=== PATIENT | female | born 1975 | race Caucasian/White ===

== ENCOUNTER → 2017-01-25 | Outpatient (CLI) | payer BC | LOC: MW.CHFP 15:55 | PROVIDERS: ATTEND Physician Assistant | DX: R68.89 Other general symptoms and signs (principal) | CPT/HCPCS: 87804 ==

== ENCOUNTER 2019-03-26 06:51 | Day surgery (SDC) | payer BC ==
[2019-03-25 10:28] LABS: CHLORIDE,CL 103 mmol/L (98-107); SODIUM,NA 138 mmol/L (136-145)
[~2019-03-26 06:51] MED LIST: Lactated Ringers 1,000 ML IV SCH; Sodium Chloride 0.9% 10 ML SDV IV PRN; Sodium Chloride 0.9% 10 ML Syringe FLUSH PRN; Sodium Chloride 0.9% 2.5 ML Syringe FLUSH PRN; ceFAZolin 2 GM in Premix Bag 1 BAG IV ONE
[2019-03-26] MEDS ORDERED: fentaNYL 250 MCG/5 ML SDV ONE (07:11)
[2019-03-26] MEDS ORDERED: Rocuronium 100 MG/10 ML Syringe ONE (07:11)
[2019-03-26] MEDS ORDERED: Lidocaine 2% 5 ML SDV ONE (07:11)
[2019-03-26] MEDS ORDERED: Neostigmine Methylsulfate 1 MG/ML 5 ML Syringe ONE (07:11)
[2019-03-26] MEDS ORDERED: Glycopyrrolate 0.2 MG/ML SDV ONE (07:11)
[2019-03-26] MEDS ORDERED: Propofol 200 MG/20 ML SDV ONE (07:11)
[2019-03-26] MEDS ORDERED: Ondansetron 4 MG/2 ML SDV ONE (07:11)
[2019-03-26] MEDS ORDERED: Midazolam 1 MG/ML 2 ML SDV ONE (07:11)
[2019-03-26] MEDS ORDERED: Fluorescein 5 ML Vial ONE ×2 (07:16→08:18)
[2019-03-26] MEDS ORDERED: Scopolamine 1.5 MG Transdermal Patch TRDERM PRN (07:22)
--- NOTE | 2019-03-26 07:22 | PCM.PREANE ---
Preanesthetic Assessment - Anesthesia/Transfusion/Family Hx Anesthesia History: Prior Anesthesia Without Reaction Family History of Anesthesia Reaction: No Transfusion History: No Prior Transfusion(s) Intubation History: Unknown - Review of Systems General: No Symptoms Pulmonary: No Symptoms Cardiovascular: No Symptoms Gastrointestinal: No Symptoms Neurological: No Symptoms Other: Reports: None - Physical Assessment Height: 1.68 m Weight: 81.193 kg ASA Class: 2 Mental Status: Alert & Oriented x3 Airway Class: Mallampati = 2 Dentition: Reports: Normal Dentition Thyro-Mental Finger Breadths: 3 Mouth Opening Finger Breadths: 3 ROM/Head Extension: Full Lungs: Clear to Auscultation, Normal Respiratory Effort Cardiovascular: Regular Rate, Regular Rhythm - Lab Values: Laboratory Last Values WBC 4.59 K/uL (4.0-11.0) 03/25/19 09:44 RBC 4.22 M/uL (4.30-5.90) L 03/25/19 09:44 Hgb 13.4 g/dL (12.0-16.0) 03/25/19 09:44 Hct 39.9 % (36.0-46.0) 03/25/19 09:44 MCV 94.5 fL (80.0-98.0) 03/25/19 09:44 MCH 31.8 pg (27.0-32.0) 03/25/19 09:44 MCHC 33.6 g/dL (31.0-37.0) 03/25/19 09:44 RDW Std Deviation 44.2 fl (28.0-62.0) 03/25/19 09:44 RDW Coeff of Desiree 13 % (11.0-15.0) 03/25/19 09:44 Plt Count 251 K/uL (150-400) 03/25/19 09:44 MPV 10.50 fL (7.40-12.00) 03/25/19 09:44 Nucleated RBC % 0.0 /100WBC 03/25/19 09:44 Nucleated RBCs # 0 K/uL 03/25/19 09:44 Sodium 138 mmol/L (136-145) 03/25/19 09:44 Potassium 3.9 mmol/L (3.5-5.1) 03/25/19 09:44 Chloride 103 mmol/L (98-107) 03/25/19 09:44 Carbon Dioxide 25.5 mmol/L (21.0-32.0) 03/25/19 09:44 BUN 15 mg/dL (7.0-18.0) 03/25/19 09:44 Creatinine 0.6 mg/dL (0.6-1.0) 03/25/19 09:44 Est Cr Clr Drug Dosing 114.34 mL/min 03/25/19 09:44 Estimated GFR (MDRD) > 60.0 ml/min 03/25/19 09:44 Glucose 109 mg/dL (74-106) H 03/25/19 09:44 Calcium 9.0 mg/dL (8.5-10.1) 03/25/19 09:44 HCG, Qual NEGATIVE (NEG) 03/25/19 09:44 Blood Type A POSITIVE 03/25/19 09:44 Antibody Screen NEGATIVE 03/25/19 09:44 - Allergies Allergies/Adverse Reactions: Allergies Allergy/AdvReac Type Severity Reaction Status Date / Time No Known Allergies Allergy Verified 03/16/19 11:42 - Blood Blood Available: No - Anesthesia Plan Pre-Op Medication Ordered: None - Acknowledgements Anesthesia Type Planned: General Anesthesia Pt an Appropriate Candidate for the Planned Anesthesia: Yes Alternatives and Risks of Anesthesia Discussed w Pt/Guardian: Yes Pt/Guardian Understands and Agrees with Anesthesia Plan: Yes PreAnesthesia Questionnaire HEENT History: Reports: None Cardiovascular History: Reports: None Respiratory History: Reports: None Gastrointestinal History: Reports: None Genitourinary History: Reports: None 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 History: Reports: Other (See Below) Other OB/BYN History: ovarian cyst Musculoskeletal History: Reports: Fibromyalgia, Other (See Below) (neuropathic pain) Neurological History: Reports: None Psychiatric History: Reports: Depression Endocrine/Metabolic History: Reports: Hypothyroidism Hematologic History: Reports: None Immunologic History: Reports: None Oncologic (Cancer) History: Reports: None Dermatologic History: Reports: None - Infectious Disease History Infectious Disease History: Reports: None - Past Surgical History Head Surgeries/Procedures: Reports: None HEENT Surgical History: Reports: None Cardiovascular Surgical History: Reports: None Respiratory Surgical History: Reports: None GI Surgical History: Reports: None Female Surgical History: Reports: Tubal Ligation Endocrine Surgical History: Reports: None Neurological Surgical History: Reports: None Musculoskeletal Surgical History: Reports: None - SUBSTANCE USE Smoking Status *Q: Current Every Day Smoker (1 ppd) Tobacco Use Within Last Twelve Months: Cigarettes Recreational Drug Use History: No - HOME MEDS Home Medications: Home Meds Gabapentin [Neurontin] 300 mg PO TID 11/21/18 [History] Levothyroxine Sodium 88 mcg PO DAILY 03/16/19 [History] - CURRENT (IN HOUSE) MEDS Current Meds: Current Medications Lactated Ringer's (Ringers, Lactated) 1,000 mls @ 500 mls/hr IV BOLUS CRISTINA Sodium Chloride (Saline Flush) 10 ml FLUSH ASDIRECTED PRN PRN Reason: Keep Vein Open Sodium Chloride (Saline Flush) 2.5 ml FLUSH ASDIRECTED PRN PRN Reason: Keep Vein Open Sodium Chloride (Normal Saline) 10 ml IV ASDIRECTED PRN PRN Reason: IV Use Discontinued Medications Fentanyl (Sublimaze) Confirm Administered Dose 250 mcg .ROUTE .STK-MED ONE Stop: 03/26/19 07:12 Glycopyrrolate (Robinul) Confirm Administered Dose 0.4 mg .ROUTE .STK-MED ONE Stop: 03/26/19 07:12 Cefazolin Sodium/Dextrose 2 gm (/ Premix) 50 mls @ 100 mls/hr IV ONETIME ONE Stop: 03/25/19 09:53 Lidocaine (Xylocaine-Mpf 2%) Confirm Administered Dose 5 ml .ROUTE .STK-MED ONE Stop: 03/26/19 07:12 Midazolam HCl (Versed 1 Mg/Ml) Confirm Administered Dose 2 mg .ROUTE .STK-MED ONE Stop: 03/26/19 07:12 Neostigmine Methylsulfate (Neostigmine) Confirm Administered Dose 5 mg .ROUTE .STK-MED ONE Stop: 03/26/19 07:12 Ondansetron HCl (Zofran) Confirm Administered Dose 4 mg .ROUTE .STK-MED ONE Stop: 03/26/19 07:12 Propofol (Diprivan 20 Ml) Confirm Administered Dose 200 mg .ROUTE .STK-MED ONE Stop: 03/26/19 07:12 Rocuronium [place] (Zemuron) Confirm Administered Dose 100 mg .ROUTE .STK-MED ONE Stop: 03/26/19 07:12
[2019-03-26] MEDS ORDERED: ceFAZolin 1 GM Vial ONE (09:25)
[2019-03-26] MEDS ORDERED: Sodium Chloride 0.9% 20 ML ONE (09:25)
[2019-03-26] MEDS ORDERED: ePHEDrine 50 MG/ML SDV ONE (09:41)
[2019-03-26] MEDS ORDERED: HYDROmorphone 2 MG/ML Syringe ONE (09:42)
[2019-03-26] MEDS ORDERED: Furosemide 40 MG/4 ML VIAL ONE (09:48)
[2019-03-26] MEDS ORDERED: fentaNYL 100 MCG/2 ML SDV ONE ×2 (09:50→10:04)
[2019-03-26] MEDS ORDERED: Atropine 0.1 MG/ML 10 ML Syringe IVPUSH PRN ×2 (09:57)
[2019-03-26] MEDS ORDERED: 50% Dextrose in Water 50 ML Syringe IVPUSH PRN (09:57)
[2019-03-26] MEDS ORDERED: Albuterol 0.083% 2.5 MG/3 ML Neb Soln NEB PRN (09:57)
[2019-03-26] MEDS ORDERED: Naloxone 0.4 MG/ML Syringe IVPUSH PRN (09:57)
[2019-03-26] MEDS ORDERED: fentaNYL 100 MCG/2 ML SDV IVPUSH PRN (09:57)
[2019-03-26] MEDS ORDERED: EPINEPHrine 1:10,000 1 MG/10 ML Syringe IVPUSH PRN (09:57)
[2019-03-26] MEDS ORDERED: Ketorolac 30 MG/ML SDV IVPUSH PRN (10:21)
[2019-03-26] MEDS ORDERED: Acetaminophen/oxyCODONE 325-5 MG Tab PO PRN (10:21)
[2019-03-26] MEDS ORDERED: Promethazine 25 MG/ML SDV IM PRN (10:21)
[2019-03-26] MEDS ORDERED: Morphine 4 MG/ML Syringe IVPUSH PRN (10:21)
[2019-03-26] MEDS ORDERED: Ketorolac 30 MG/ML SDV IVPUSH ONE (10:21)
--- NOTE | 2019-03-26 10:25 | PCM.OPNOTE ---
- General Post-Op/Procedure Note Date of Surgery/Procedure: 03/26/19 Operative Procedure(s): TVH , cysto Pre Op Diagnosis: Bleeding Post-Op Diagnosis: Same Anesthesia Technique: General LMA Primary Surgeon: Timi Guillory EBL in mLs: 100 Complications: None Condition: Good
[2019-03-26] MEDS ORDERED: Acetaminophen 1,000 MG in Premix Bag 1 BAG IV ONE (10:52)
[2019-03-26] MEDS ORDERED: diphenhydrAMINE 50 MG/ML SDV ONE (11:02)
[2019-03-26] MEDS ORDERED: diphenhydrAMINE 50 MG/ML SDV IVPUSH ONE (11:15)
--- NOTE | 2019-03-26 11:45 | PCM.POSTAN ---
POST ANESTHESIA ASSESSMENT - MENTAL STATUS Mental Status: Alert, Oriented - RESPIRATORY Respiratory Status: Respiratory Rate WNL, Airway Patent, O2 Saturation Stable - CARDIOVASCULAR CV Status: Pulse Rate WNL, Blood Pressure Stable - GASTROINTESTINAL GI Status: No Symptoms - PAIN Pain Score: 5 - POST OP HYDRATION Hydration Status: Adequate & Stable - OBSERVATIONS Free Text/Narrative:: no anesthesia problems
[2019-03-26] MEDS: Acetaminophen/oxyCODONE 325-5 MG Tab PO PRN ×3 (12:33→22:45)
--- NOTE | 2019-03-26 16:43 | OR ---
SURGEON: Timi Guillory MD DATE OF PROCEDURE: 03/26/2019 PREOPERATIVE DIAGNOSIS: Menometrorrhagia. POSTOPERATIVE DIAGNOSIS: Menometrorrhagia. OPERATIONS PERFORMED: Total vaginal hysterectomy, bilateral salpingectomy, preserving both ovaries, and cystoscopy. PRIMARY SURGEON: Timi Guillory MD. PHOTOGRAPHIC REPRODUCTION TECHNICIAN: OR tech. ANESTHESIA: General endotracheal intubation, Mr. Lucio Pedraza and Dr. Lee. ESTIMATED BLOOD LOSS: 100 mL. COMPLICATIONS: None. FINDINGS: Uterus is about 10-week size. Both ovaries essentially are normal. INDICATION FOR SURGERY: [place] referred to the admit note. PROCEDURE IN DETAIL: The patient was brought to the OR, properly identified, and after adequate level of general anesthesia, the patient was placed in lithotomy position, prepped and draped in sterile fashion as usual. Time-out was taken to reidentify the patient and then straight catheter was used to empty the bladder. Short weighted speculum was placed in the vagina and circular incision in the vaginal wall around the cervix utilizing the electrocautery was done. The posterior cul- de-sac was entered vaginally and the vagina and the perineum tagged vaginally with 2-0 Vicryl and held for further identification, and short weighted speculum was placed with extended and long weighted speculum. The uterosacral ligament was identified from both sides, clamped with a curved Zeppelin, transected, and suture ligated with 2-0 Vicryl pop-off. The same thing was done with cardinal ligament, and then the cervical vesicle space was entered anteriorly, and the bladder is retracted completely away from the operative field. The broad ligament was clamped with a curved Zeppelin from both sides, transected, and suture ligated with 2-0 Vicryl pop-off, and the round ligament clamped with a curved zeppelin, transected, and suture ligated with 2-0 Vicryl pop-off on both sides. The uterus was delivered posteriorly and the superior pedicle was clamped with 90 degree zeppelin. The tubes and ovaries were included with the specimen. The tubes included with the specimen. Both ovaries were preserved and then the superior pedicle transected removing the uterus and both tubes on both sides. The superior pedicle is first tied with free tie and twice on both sides. Then, inspection of the operative field shows no oozing, no bleeding. The uterosacral cardinal ligament anchored to the vagina at 3 and 9 o'clock for added vaginal support and we proceeded to close the vaginal cuff with 2-0 Vicryl interrupted [id number] suture. While we were doing that, we asked Anesthesia to give the patient fluorescein and once we closed the vaginal cuff, then cystoscopy was performed. The bladder was intact. Both ureteric orifices seen with the dye coming from both of them. Thus, the patency of both ureters verified and satisfied with this finding. The procedure was ended. The instrument and sponge count were correct. The patient tolerated the procedure well and went to recovery room in stable general condition. JACLYN / EZEQUIEL /[id number]
[2019-03-26] MEDS: Ondansetron 4 MG/2 ML SDV IVPUSH PRN (17:14)
[2019-03-26] MEDS ORDERED: Calcium Carbonate 500 MG Tab.Chew PO PRN (19:39)
[2019-03-27] MEDS: Ondansetron 4 MG/2 ML SDV IVPUSH PRN (03:28)
[2019-03-27] MEDS: Acetaminophen/oxyCODONE 325-5 MG Tab PO PRN (03:28)
[2019-03-27 05:43] LABS: CHLORIDE,CL 102 mmol/L (98-107); SODIUM,NA 136 mmol/L (136-145)
[2019-03-27 07:51] VITALS: BP 113/84
--- NOTE | 2019-03-27 09:21 | PCM.SURGPN ---
- General Info Date of Service: 03/27/19 POD#: 1 Functional Status: Reports: Pain Controlled - Review of Systems General: Reports: No Symptoms HEENT: Reports: No Symptoms Pulmonary: Reports: No Symptoms Cardiovascular: Reports: No Symptoms Gastrointestinal: Reports: No Symptoms Genitourinary: Reports: No Symptoms Musculoskeletal: Reports: No Symptoms Skin: Reports: No Symptoms Neurological: Reports: No Symptoms Psychiatric: Reports: No Symptoms - Patient Data Vitals - Most Recent: Last Vital Signs Temp 36.5 C 03/27/19 07:50 Pulse 94 03/27/19 07:50 Resp 16 03/27/19 07:50 BP 113/84 03/27/19 07:50 Pulse Ox 95 03/27/19 07:50 Weight - Most Recent: 81.193 kg I&O - Last 24 Hours: Intake & Output 03/26/19 03/27/19 03/27/19 22:59 06:59 14:59 Intake Total 450 900 Output Total 400 450 Balance 50 450 Lab Results Last 24 Hrs: Laboratory Results - last 24 hr 03/27/19 03/27/19 Range/Units 05:03 05:03 WBC 11.87 H (4.0-11.0) K/uL RBC 3.86 L (4.30-5.90) M/uL Hgb 12.1 (12.0-16.0) g/dL Hct 36.4 (36.0-46.0) % MCV 94.3 (80.0-98.0) fL MCH 31.3 (27.0-32.0) pg MCHC 33.2 (31.0-37.0) g/dL RDW Std Deviation 42.0 (28.0-62.0) fl RDW Coeff of Desiree 12 (11.0-15.0) % Plt Count 235 (150-400) K/uL MPV 11.10 (7.40-12.00) fL Neut % (Auto) 80.9 H (48.0-80.0) % Lymph % (Auto) 15.2 L (16.0-40.0) % [place]rill % (Auto) 3.8 (0.0-15.0) % Eos % (Auto) 0.0 (0.0-7.0) % Baso % (Auto) 0.1 (0.0-1.5) % Neut # (Auto) 9.6 H (1.4-5.7) K/uL Lymph # (Auto) 1.8 (0.6-2.4) K/uL [place] # (Auto) 0.5 (0.0-0.8) K/uL Eos # (Auto) 0.0 (0.0-0.7) K/uL Baso # (Auto) 0.0 (0.0-0.1) K/uL Nucleated RBC % 0.0 /100WBC Nucleated RBCs # 0 K/uL Sodium 136 (136-145) mmol/L Potassium 4.0 (3.5-5.1) mmol/L Chloride 102 (98-107) mmol/L Carbon Dioxide 26.1 (21.0-32.0) mmol/L BUN 10 (7.0-18.0) mg/dL Creatinine 0.7 (0.6-1.0) mg/dL Est Cr Clr Drug Dosing 98.01 mL/min Estimated GFR (MDRD) > 60.0 ml/min Glucose 158 H (74-106) mg/dL Calcium 8.8 (8.5-10.1) mg/dL Med Orders - Current: Current Medications Albuterol (Proventil Neb Soln) 2.5 mg NEB ONETIME PRN PRN Reason: Wheezing Atropine Sulfate (Atropine 0.1 Mg/Ml) 0.5 mg IVPUSH ASDIRECTED PRN PRN Reason: Hypo-perfusion Atropine Sulfate (Atropine 0.1 Mg/Ml) 1 mg IVPUSH ASDIRECTED PRN PRN Reason: Hypo-Perfusion Calcium Carbonate/Glycine (Tums) 1,000 mg PO Q4H PRN PRN Reason: acid reflux Dextrose/Water (Dextrose 50% In Water) 50 ml IVPUSH ASDIRECTED PRN PRN Reason: Hypoglycemia Epinephrine HCl (Epinephrine 1:10,000) 1 mg IVPUSH ASDIRECTED PRN PRN Reason: ACLS Guidelines Fentanyl (Sublimaze) 50 - 100 mcg IVPUSH Q5M PRN PRN Reason: Pain Last Admin: 03/26/19 10:46 Dose: 50 mcg Lactated Ringer's (Ringers, Lactated) 1,000 mls @ 500 mls/hr IV BOLUS CRISTINA Last Admin: 03/26/19 07:32 Dose: 500 mls/hr Ketorolac Tromethamine (Toradol) 30 mg IVPUSH Q6H PRN PRN Reason: Pain (severe 7-10) Stop: 03/31/19 10:21 Last Admin: 03/26/19 10:48 Dose: 30 mg Morphine Sulfate (Morphine) 4 mg IVPUSH Q2H PRN PRN Reason: Pain (severe 7-10) Naloxone HCl (Narcan) 0.1 mg IVPUSH ASDIRECTED PRN PRN Reason: Respiratory Depression Ondansetron HCl (Zofran) 4 mg IVPUSH Q6H PRN PRN Reason: Nausea/Vomiting Last Admin: 03/27/19 03:28 Dose: 4 mg Oxycodone/Acetaminophen (Percocet 325-5 Mg) 1 tab PO Q4H PRN PRN Reason: Pain (moderate 4-6) Oxycodone/Acetaminophen (Percocet 325-5 Mg) 2 tab PO Q4H PRN PRN Reason: Pain (moderate 4-6) Last Admin: 03/27/19 03:28 Dose: 2 tab Promethazine HCl (Phenergan) 25 mg IM Q6H PRN PRN Reason: Nausea/Vomiting Last Admin: 03/26/19 20:10 Dose: 25 mg Scopolamine (Transderm-Scop) 1.5 mg TRDERM Q72H PRN PRN Reason: Nausea Last Admin: 03/26/19 07:34 Dose: 1.5 mg Sodium Chloride (Saline Flush) 10 ml FLUSH ASDIRECTED PRN PRN Reason: Keep Vein Open Sodium Chloride (Saline Flush) 2.5 ml FLUSH ASDIRECTED PRN PRN Reason: Keep Vein Open Sodium Chloride (Normal Saline) 10 ml IV ASDIRECTED PRN PRN Reason: IV Use Discontinued Medications Cefazolin Sodium (Ancef) Confirm Administered Dose 2 gm .ROUTE .STK-MED ONE Stop: 03/26/19 09:26 Diphenhydramine HCl (Benadryl) Confirm Administered Dose 50 mg .ROUTE .STK-MED ONE Stop: 03/26/19 11:03 Last Admin: 03/26/19 14:33 Dose: Not Given Diphenhydramine HCl (Benadryl) 25 mg IVPUSH ONETIME ONE Stop: 03/26/19 11:16 Last Admin: 03/26/19 11:18 Dose: 25 mg Ephedrine Sulfate (Ephedrine Sulfate) Confirm Administered Dose 50 mg .ROUTE .[facility] ONE Stop: 03/26/19 09:42 Fentanyl (Sublimaze) Confirm Administered Dose [address] .[facility] ONE Stop: 03/26/19 07:12 Fentanyl (Sublimaze) Confirm Administered Dose 100 mcg .ROUTE .[facility] ONE Stop: 03/26/19 09:51 Fentanyl (Sublimaze) Confirm Administered Dose 100 mcg .ROUTE .[facility] ONE Stop: 03/26/19 10:05 Fluorescein Sodium (Ak-Fluor) Confirm Administered Dose 5 ml .[address] .[facility] ONE Stop: 03/26/19 07:17 Fluorescein Sodium (Ak-Fluor) Confirm Administered Dose 5 ml .[address] .[facility] ONE Stop: 03/26/19 08:19 Furosemide (Lasix) Confirm Administered Dose 40 mg .[address] .[facility] ONE Stop: 03/26/19 09:49 Glycopyrrolate (Robinul) Confirm Administered Dose 0.4 mg .ROUTE .[facility] ONE Stop: 03/26/19 07:12 Hydromorphone HCl (Dilaudid) Confirm Administered Dose 2 mg .[address] .[facility] ONE Stop: 03/26/19 09:43 Cefazolin Sodium/Dextrose 2 gm (/ Premix) 50 mls @ 100 mls/hr IV ONETIME ONE Stop: 03/25/19 09:53 Last Admin: 03/26/19 14:32 Dose: Not Given Sodium Chloride (Normal Saline) Confirm Administered Dose 20 mls @ as directed .ROUTE .[facility] ONE Stop: 03/26/19 09:26 Acetaminophen 1,000 mg/ Premix 100 mls @ 400 mls/hr IV NOW ONE Stop: 03/26/19 11:06 Last Admin: 03/26/19 10:57 Dose: 400 mls/hr Acetaminophen (Ofirmev) Confirm Administered Dose 100 mls @ as directed IV .[facility] ONE Stop: 03/26/19 10:54 Ketorolac Tromethamine (Toradol) 30 mg IVPUSH ONETIME ONE Stop: 03/26/19 10:22 Last Admin: 03/26/19 14:32 Dose: Not Given Lidocaine (Xylocaine-Mpf 2%) Confirm Administered Dose 5 ml .ROUTE .STK-MED ONE Stop: 03/26/19 07:12 Midazolam HCl (Versed 1 Mg/Ml) Confirm Administered Dose 2 mg .ROUTE .STK-MED ONE Stop: 03/26/19 07:12 Neostigmine Methylsulfate (Neostigmine) Confirm Administered Dose 5 mg .ROUTE .STK-MED ONE Stop: 03/26/19 07:12 Ondansetron HCl (Zofran) Confirm Administered Dose 4 mg .ROUTE .STK-MED ONE Stop: 03/26/19 07:12 Propofol (Diprivan 20 Ml) Confirm Administered Dose 200 mg .ROUTE .STK-MED ONE Stop: 03/26/19 07:12 Rocuronium [place] (Zemuron) Confirm Administered Dose 100 mg .ROUTE .STK-MED ONE Stop: 03/26/19 07:12 - Exam Wound/Incisions: Healing Well General: Alert, Oriented HEENT: Pupils Equal Neck: Supple Lungs: Clear to Auscultation, Normal Respiratory Effort Cardiovascular: Regular Rate, Regular Rhythm GI/Abdominal Exam: Normal Bowel Sounds, Soft, Non-Tender, No Organomegaly, No Distention, No Abnormal Bruit, No Mass, Pelvis Stable Extremities: Normal Inspection, Normal Range of Motion, Non-Tender, No Pedal Edema, Normal Capillary Refill Skin: Warm, Dry, Intact Neurological: No New Focal Deficit Psy/Mental Status: Alert, Normal Affect, Normal Mood - Problem List Review Problem List Initiated/Reviewed/Updated: Yes - My Orders Last 24 Hours: Active Orders 24 hr Category Date Time Status Patient Status [ADT] Routine ADT 03/26/19 10:21 Active Antiembolic Devices [RC] PER UNIT ROUTINE Care 03/26/19 10:22 Active Blood Glucose Check, Bedside [RC] PRN Care 03/26/19 09:57 Active Notify Provider Vital Signs [RC] ASDIRECTED Care 03/26/19 09:57 Active Notify Provider Vital Signs [RC] ASDIRECTED Care 03/26/19 10:21 Active Oxygen Therapy [RC] ASDIRECTED Care 03/26/19 10:21 Active Oxygen Therapy [RC] PRN Care 03/26/19 09:57 Active RT Aerosol Therapy [RC] ASDIRECTED Care 03/26/19 09:57 Active RT Incentive Spirometry [RC] Q2HWA Care 03/26/19 10:21 Active Up With Assistance [RC] PER UNIT ROUTINE Care 03/26/19 10:21 Active Up ad Joellen [RC] PER UNIT ROUTINE Care 03/26/19 10:21 Active Vital Signs [RC] Q4H Care 03/26/19 10:21 Active Vital Signs [RC] Q5M Care 03/26/19 09:57 Active Regular Diet [DIET] Diet 03/26/19 Lunch Active Acetaminophen/oxyCODONE [Percocet 325-5 MG] Med 03/26/19 10:21 Active 1 tab PO Q4H PRN Acetaminophen/oxyCODONE [Percocet 325-5 MG] Med 03/26/19 10:21 Active 2 tab PO Q4H PRN Albuterol [Proventil Neb Soln] Med 03/26/19 09:57 Active 2.5 mg NEB ONETIME PRN Atropine [Atropine 0.1 MG/ML] Med 03/26/19 09:57 Active 0.5 mg IVPUSH ASDIRECTED PRN Atropine [Atropine 0.1 MG/ML] Med 03/26/19 09:57 Active 1 mg IVPUSH ASDIRECTED PRN Calcium Carbonate [Tums] Med 03/26/19 19:39 Active 1,000 mg PO Q4H PRN Dextrose 50% in Water Med 03/26/19 09:57 Active 50 ml IVPUSH ASDIRECTED PRN EPINEPHrine [EPINEPHrine 1:10,000] Med 03/26/19 09:57 Active 1 mg IVPUSH ASDIRECTED PRN Ketorolac [Toradol] Med 03/26/19 10:21 Active 30 mg IVPUSH Q6H PRN Morphine Med 03/26/19 10:21 Active 4 mg IVPUSH Q2H PRN Naloxone [Narcan] Med 03/26/19 09:57 Active 0.1 mg IVPUSH ASDIRECTED PRN Ondansetron [Zofran] Med 03/26/19 10:21 Active 4 mg IVPUSH Q6H PRN Promethazine [Phenergan] Med 03/26/19 10:21 Active 25 mg IM Q6H PRN fentaNYL [Sublimaze] Med 03/26/19 09:57 Active 50 - 100 mcg IVPUSH Q5M PRN Peripheral IV Discontinue [OM.PC] Routine Oth 03/26/19 10:21 Ordered Sequential Compression Device [OM.PC] Per Unit Routine Oth 03/26/19 10:21 Ordered Resuscitation Status Routine Resus Stat 03/26/19 10:21 Ordered Medication Orders Albuterol (Proventil Neb Soln) 2.5 mg NEB ONETIME PRN PRN Reason: Wheezing Atropine Sulfate (Atropine 0.1 Mg/Ml) 0.5 mg IVPUSH ASDIRECTED PRN PRN Reason: Hypo-perfusion Atropine Sulfate (Atropine 0.1 Mg/Ml) 1 mg IVPUSH ASDIRECTED PRN PRN Reason: Hypo-Perfusion Calcium Carbonate/Glycine (Tums) 1,000 mg PO Q4H PRN PRN Reason: acid reflux Dextrose/Water (Dextrose 50% In Water) 50 ml IVPUSH ASDIRECTED PRN PRN Reason: Hypoglycemia Epinephrine HCl (Epinephrine 1:10,000) 1 mg IVPUSH ASDIRECTED PRN PRN Reason: ACLS Guidelines Fentanyl (Sublimaze) 50 - 100 mcg IVPUSH Q5M PRN PRN Reason: Pain Last Admin: 03/26/19 10:46 Dose: 50 mcg Lactated Ringer's (Ringers, Lactated) 1,000 mls @ 500 mls/hr IV BOLUS CRISTINA Last Admin: 03/26/19 07:32 Dose: 500 mls/hr Ketorolac Tromethamine (Toradol) 30 mg IVPUSH Q6H PRN PRN Reason: Pain (severe 7-10) Stop: 03/31/19 10:21 Last Admin: 03/26/19 10:48 Dose: 30 mg Morphine Sulfate (Morphine) 4 mg IVPUSH Q2H PRN PRN Reason: Pain (severe 7-10) Naloxone HCl (Narcan) 0.1 mg IVPUSH ASDIRECTED PRN PRN Reason: Respiratory Depression Ondansetron HCl (Zofran) 4 mg IVPUSH Q6H PRN PRN Reason: Nausea/Vomiting Last Admin: 03/27/19 03:28 Dose: 4 mg Admin: 03/26/19 17:14 Dose: 4 mg Oxycodone/Acetaminophen (Percocet 325-5 Mg) 1 tab PO Q4H PRN PRN Reason: Pain (moderate 4-6) Oxycodone/Acetaminophen (Percocet 325-5 Mg) 2 tab PO Q4H PRN PRN Reason: Pain (moderate 4-6) Last Admin: 03/27/19 03:28 Dose: 2 tab Admin: 03/26/19 22:45 Dose: 2 tab Admin: 03/26/19 18:06 Dose: 2 tab Admin: 03/26/19 12:33 Dose: 2 tab Promethazine HCl (Phenergan) 25 mg IM Q6H PRN PRN Reason: Nausea/Vomiting Last Admin: 03/26/19 20:10 Dose: 25 mg Scopolamine (Transderm-Scop) 1.5 mg TRDERM Q72H PRN PRN Reason: Nausea Last Admin: 03/26/19 07:34 Dose: 1.5 mg Sodium Chloride (Saline Flush) 10 ml FLUSH ASDIRECTED PRN PRN Reason: Keep Vein Open Sodium Chloride (Saline Flush) 2.5 ml FLUSH ASDIRECTED PRN PRN Reason: Keep Vein Open Sodium Chloride (Normal Saline) 10 ml IV ASDIRECTED PRN PRN Reason: IV Use - Assessment Assessment (Free Text/Narrative):: Status post vaginal hysterectomy postoperative day 1 and she is doing well she is on regular diet she is ambulatory there is no vaginal bleeding she is voiding without any problem and had pain is under control. - Plan Plan (Free Text/Narrative):: Patient will be sent home today with the postoperative instructions she was told there is no restriction on her diet the postvasectomy instruction is given and a prescription for Narco 5 to take for postoperative pain the patient is already have appointment scheduled in 2 weeks for follow-up
--- NOTE | 2019-03-27 09:22 | PCM.DCSUM1 ---
Discharge Summary - Hospital Course Diagnosis: Stroke: No - Discharge Data Discharge Date: 03/27/19 Discharge Disposition: Home, Self-Care 01 Condition: Good - Patient Summary/Data Operative Procedure(s) Performed: TVH , cysto - Patient Instructions Diet: Usual Diet as Tolerated Driving: Do Not Drive Showering/Bathing: March Shower - Discharge Plan Home Medications: Home Meds Gabapentin [Neurontin] 300 mg PO TID 11/21/18 [History] Levothyroxine Sodium 88 mcg PO DAILY 03/16/19 [History] - Discharge Summary/Plan Comment DC Time >30 min.: Yes - General Info Date of Service: 03/27/19 Functional Status: Reports: Pain Controlled - Review of Systems General: Reports: No Symptoms HEENT: Reports: No Symptoms Pulmonary: Reports: No Symptoms Cardiovascular: Reports: No Symptoms Gastrointestinal: Reports: No Symptoms Genitourinary: Reports: No Symptoms Musculoskeletal: Reports: No Symptoms Skin: Reports: No Symptoms Neurological: Reports: No Symptoms Psychiatric: Reports: No Symptoms - Patient Data Vitals - Most Recent: Last Vital Signs Temp 36.5 C 03/27/19 07:50 Pulse 94 03/27/19 07:50 Resp 16 03/27/19 07:50 BP 113/84 03/27/19 07:50 Pulse Ox 95 03/27/19 07:50 Weight - Most Recent: 81.193 kg I&O - Last 24 hours: Intake & Output 03/26/19 03/27/19 03/27/19 22:59 06:59 14:59 Intake Total 450 900 Output Total 400 450 Balance 50 450 Lab Results - Last 24 hrs: Laboratory Results - last 24 hr 03/27/19 03/27/19 Range/Units 05:03 05:03 WBC 11.87 H (4.0-11.0) K/uL RBC 3.86 L (4.30-5.90) M/uL Hgb 12.1 (12.0-16.0) g/dL Hct 36.4 (36.0-46.0) % MCV 94.3 (80.0-98.0) fL MCH 31.3 (27.0-32.0) pg MCHC 33.2 (31.0-37.0) g/dL RDW Std Deviation 42.0 (28.0-62.0) fl RDW Coeff of Desiree 12 (11.0-15.0) % Plt Count 235 (150-400) K/uL MPV 11.10 (7.40-12.00) fL Neut % (Auto) 80.9 H (48.0-80.0) % Lymph % (Auto) 15.2 L (16.0-40.0) % [place] % (Auto) 3.8 (0.0-15.0) % Eos % (Auto) 0.0 (0.0-7.0) % Baso % (Auto) 0.1 (0.0-1.5) % Neut # (Auto) 9.6 H (1.4-5.7) K/uL Lymph # (Auto) 1.8 (0.6-2.4) K/uL [place] # (Auto) 0.5 (0.0-0.8) K/uL Eos # (Auto) 0.0 (0.0-0.7) K/uL Baso # (Auto) 0.0 (0.0-0.1) K/uL Nucleated RBC % 0.0 /100WBC Nucleated RBCs # 0 K/uL Sodium 136 (136-145) mmol/L Potassium 4.0 (3.5-5.1) mmol/L Chloride 102 (98-107) mmol/L Carbon Dioxide 26.1 (21.0-32.0) mmol/L BUN 10 (7.0-18.0) mg/dL Creatinine 0.7 (0.6-1.0) mg/dL Est Cr Clr Drug Dosing 98.01 mL/min Estimated GFR (MDRD) > 60.0 ml/min Glucose 158 H (74-106) mg/dL Calcium 8.8 (8.5-10.1) mg/dL Med Orders - Current: Current Medications Albuterol (Proventil Neb Soln) 2.5 mg NEB ONETIME PRN PRN Reason: Wheezing Atropine Sulfate (Atropine 0.1 Mg/Ml) 0.5 mg IVPUSH ASDIRECTED PRN PRN Reason: Hypo-perfusion Atropine Sulfate (Atropine 0.1 Mg/Ml) 1 mg IVPUSH ASDIRECTED PRN PRN Reason: Hypo-Perfusion Calcium Carbonate/Glycine (Tums) 1,000 mg PO Q4H PRN PRN Reason: acid reflux Dextrose/Water (Dextrose 50% In Water) 50 ml IVPUSH ASDIRECTED PRN PRN Reason: Hypoglycemia Epinephrine HCl (Epinephrine 1:10,000) 1 mg IVPUSH ASDIRECTED PRN PRN Reason: ACLS Guidelines Fentanyl (Sublimaze) 50 - 100 mcg IVPUSH Q5M PRN PRN Reason: Pain Last Admin: 03/26/19 10:46 Dose: 50 mcg Lactated Ringer's (Ringers, Lactated) 1,000 mls @ 500 mls/hr IV BOLUS CRISTINA Last Admin: 03/26/19 07:32 Dose: 500 mls/hr Ketorolac Tromethamine (Toradol) 30 mg IVPUSH Q6H PRN PRN Reason: Pain (severe 7-10) Stop: 03/31/19 10:21 Last Admin: 03/26/19 10:48 Dose: 30 mg Morphine Sulfate (Morphine) 4 mg IVPUSH Q2H PRN PRN Reason: Pain (severe 7-10) Naloxone HCl (Narcan) 0.1 mg IVPUSH ASDIRECTED PRN PRN Reason: Respiratory Depression Ondansetron HCl (Zofran) 4 mg IVPUSH Q6H PRN PRN Reason: Nausea/Vomiting Last Admin: 03/27/19 03:28 Dose: 4 mg Oxycodone/Acetaminophen (Percocet 325-5 Mg) 1 tab PO Q4H PRN PRN Reason: Pain (moderate 4-6) Oxycodone/Acetaminophen (Percocet 325-5 Mg) 2 tab PO Q4H PRN PRN Reason: Pain (moderate 4-6) Last Admin: 03/27/19 03:28 Dose: 2 tab Promethazine HCl (Phenergan) 25 mg IM Q6H PRN PRN Reason: Nausea/Vomiting Last Admin: 03/26/19 20:10 Dose: 25 mg Scopolamine (Transderm-Scop) 1.5 mg TRDERM Q72H PRN PRN Reason: Nausea Last Admin: 03/26/19 07:34 Dose: 1.5 mg Sodium Chloride (Saline Flush) 10 ml FLUSH ASDIRECTED PRN PRN Reason: Keep Vein Open Sodium Chloride (Saline Flush) 2.5 ml FLUSH ASDIRECTED PRN PRN Reason: Keep Vein Open Sodium Chloride (Normal Saline) 10 ml IV ASDIRECTED PRN PRN Reason: IV Use Discontinued Medications Cefazolin Sodium (Ancef) Confirm Administered Dose 2 gm .ROUTE .ST-MED ONE Stop: 03/26/19 09:26 Diphenhydramine HCl (Benadryl) Confirm Administered Dose 50 mg .ROUTE .ST-MED ONE Stop: 03/26/19 11:03 Last Admin: 03/26/19 14:33 Dose: Not Given Diphenhydramine HCl (Benadryl) 25 mg IVPUSH ONETIME ONE Stop: 03/26/19 11:16 Last Admin: 03/26/19 11:18 Dose: 25 mg Ephedrine Sulfate (Ephedrine Sulfate) Confirm Administered Dose 50 mg .ROUTE .[facility] ONE Stop: 03/26/19 09:42 Fentanyl (Sublimaze) Confirm Administered Dose 250 mcg .ROUTE .ST-MED ONE Stop: 03/26/19 07:12 Fentanyl (Sublimaze) Confirm Administered Dose 100 mcg .ROUTE .[facility] ONE Stop: 03/26/19 09:51 Fentanyl (Sublimaze) Confirm Administered Dose 100 mcg .ROUTE .[facility] ONE Stop: 03/26/19 10:05 Fluorescein Sodium (Ak-Fluor) Confirm Administered Dose 5 ml .ROUTE .[facility] ONE Stop: 03/26/19 07:17 Fluorescein Sodium (Ak-Fluor) Confirm Administered Dose 5 ml .ROUTE .ST-MED ONE Stop: 03/26/19 08:19 Furosemide (Lasix) Confirm Administered Dose 40 mg .ROUTE .ST-MED ONE Stop: 03/26/19 09:49 Glycopyrrolate (Robinul) Confirm Administered Dose 0.4 mg .ROUTE .ST-MED ONE Stop: 03/26/19 07:12 Hydromorphone HCl (Dilaudid) Confirm Administered Dose 2 mg .ROUTE .ST-MED ONE Stop: 03/26/19 09:43 Cefazolin Sodium/Dextrose 2 gm (/ Premix) 50 mls @ 100 mls/hr IV ONETIME ONE Stop: 03/25/19 09:53 Last Admin: 03/26/19 14:32 Dose: Not Given Sodium Chloride (Normal Saline) Confirm Administered Dose 20 mls @ as directed .ROUTE .[facility] ONE Stop: 03/26/19 09:26 Acetaminophen 1,000 mg/ Premix 100 mls @ 400 mls/hr IV NOW ONE Stop: 03/26/19 11:06 Last Admin: 03/26/19 10:57 Dose: 400 mls/hr Acetaminophen (Ofirmev) Confirm Administered Dose 100 mls @ as directed IV .STK- MED ONE Stop: 03/26/19 10:54 Ketorolac Tromethamine (Toradol) 30 mg IVPUSH ONETIME ONE Stop: 03/26/19 10:22 Last Admin: 03/26/19 14:32 Dose: Not Given Lidocaine (Xylocaine-Mpf 2%) Confirm Administered Dose 5 ml .ROUTE .STK-MED ONE Stop: 03/26/19 07:12 Midazolam HCl (Versed 1 Mg/Ml) Confirm Administered Dose 2 mg .ROUTE .STK-MED ONE Stop: 03/26/19 07:12 Neostigmine Methylsulfate (Neostigmine) Confirm Administered Dose 5 mg .ROUTE .STK-MED ONE Stop: 03/26/19 07:12 Ondansetron HCl (Zofran) Confirm Administered Dose 4 mg .ROUTE .STK-MED ONE Stop: 03/26/19 07:12 Propofol (Diprivan 20 Ml) Confirm Administered Dose 200 mg .ROUTE .STK-MED ONE Stop: 03/26/19 07:12 Rocuronium [place] (Zemuron) Confirm Administered Dose 100 mg .ROUTE .STK-MED ONE Stop: 03/26/19 07:12 - Exam General: Reports: Alert, Oriented HEENT: Reports: Pupils Equal, Pupils Reactive, EOMI, Mucous Membr. Moist/[place] Neck: Reports: Supple Lungs: Reports: Clear to Auscultation, Normal Respiratory Effort Cardiovascular: Reports: Regular Rate, Regular Rhythm GI/Abdominal Exam: Normal Bowel Sounds, Soft, Non-Tender, No Organomegaly, No Distention, No Abnormal Bruit, No Mass, Pelvis Stable (Female) Exam: Normal External Exam, Normal Speculum Exam, Normal Bimanual Exam Rectal (Female) Exam: Normal Exam, Normal Rectal Tone Back Exam: Reports: Normal Inspection, Full Range of Motion Extremities: Normal Inspection, Normal Range of Motion, Non-Tender, No Pedal Edema, Normal Capillary Refill Skin: Reports: Warm, Dry, Intact Wound/Incisions: Reports: Healing Well Neurological: Reports: No New Focal Deficit Psy/Mental Status: Reports: Alert, Normal Affect, Normal Mood
== END 2019-03-27 10:30 | disposition home or self-care (01) ==
LOC: MW.SDS 06:51 → MW.MS 11:28 → MW.SDS 03-27 10:30
PROVIDERS: ATTEND Obstetrics & Gynecology
DX: N84.0 Polyp of corpus uteri (principal); N87.9 Dysplasia of cervix uteri, unspecified; N83.8 Other noninflammatory disorders of ovary, fallopian tube and broad ligament; N88.8 Other specified noninflammatory disorders of cervix uteri; E03.9 Hypothyroidism, unspecified; F17.210 Nicotine dependence, cigarettes, uncomplicated; F32.9 Major depressive disorder, single episode, unspecified; Z79.899 Other long term (current) drug therapy
CPT/HCPCS: 36415; 58262; 80048; 84703; 85025; 85027; 86850; 86900; 86901; 88307; A4217; A9270; J0131; J0690; J1170; J1200; J1885; J1940; J2001; J2250; J2405; J2550; J2704; J3010; J3490; J7120; 00944

== ENCOUNTER 2019-04-15 03:59 | Emergency (ER) | payer BC ==
[2019-04-15] MEDS ORDERED: Ketorolac 30 MG/ML SDV ONE (04:43)
[2019-04-15] MEDS ORDERED: Ondansetron 4 MG/2 ML SDV ONE (04:44)
[2019-04-15] MEDS ORDERED: Ondansetron 4 MG/2 ML SDV IVPUSH ONE ×2 (04:45)
[2019-04-15] MEDS ORDERED: Sodium Chloride 0.9% 1,000 ML IV ONE (04:46)
[2019-04-15] MEDS ORDERED: Ketorolac 30 MG/ML SDV IVPUSH ONE (04:48)
[2019-04-15] MEDS ORDERED: Iopamidol 755 MG/ML 200 ML Multipack Bottle IVPUSH ONE (07:17)
[2019-04-15 07:27] LABS: CHLORIDE,CL 103 mmol/L (98-107); SODIUM,NA 138 mmol/L (136-145)
[2019-04-15 09:38] VITALS: BP 99/55
--- NOTE | 2019-04-15 17:29 | CT ---
EXAM DATE: 04/15/19 PATIENT'S AGE: 43 Patient: MARTIN CRABTREE Facility: [facility], [facility] : 1975 Study: CT-Abdomen/Pelvis w/ cont.-04/15/2019 7:03:30 AM Ordering Physician: Hayder Final Report: INDICATION: Pt has hysterectomy about a month ago and is now having lower abdominal pain Indication: Recent hysterectomy. Abdominal pain. Technique: CT of the abdomen pelvis. 100 cc of Isovue 370 IV. Coronal/sagittal reconstruction images. Comparison: CT of the abdomen and pelvis 06/19/2018. Findings: Lung bases: There is no pleural or pericardial effusion. The heart size is normal. Linear atelectasis in the inferior segment of the lingula. There is no acute airspace disease. There is no basilar pneumothorax. Abdomen/pelvis: The hepatic morphology is normal. There are no inflammatory changes adjacent to the gallbladder. There are a few low-dense liver lesions which are most likely benign cysts. Largest measures 3-4 millimeters in segment 8. No interval change. Spleen size is normal. No adrenal mass. No hydronephrosis. 2-3 millimeter stone in the right kidney on image 66. This finding is stable. No pancreatic mass, pancreatic duct dilation, or glandular atrophy. No free air. Urinary bladder is normal. There is no adnexal mass. There is no evidence of a small bowel or colonic obstruction. There is no mucosal hyper enhancement. There is no perienteric edema. There is no transition point to indicate a mechanical small bowel or colonic obstruction. No evidence for appendicitis. No adenopathy is seen by size criteria in the pelvis, retroperitoneum, or gastrohepatic ligament. The bone windows demonstrate sclerosis at the right SI joint. This is stable. No suspicious bone lesions are identified by CT. Vertebral body heights are maintained on sagittal reconstruction images. Impression: 1. No findings are seen to explain the patient`s symptoms. 2. There is no postoperative fluid collection. 3. Normal caliber appendix. 4. No abdominal/pelvic lymphadenopathy. Dictated by Hardeep Lizarraga MD @ 04/15/2019 7:34:18 AM Please note that all CT scans at this facility use dose modulation, iterative reconstruction, and/or weight-based dosing when appropriate to reduce radiation dose to as low as reasonably achievable. Dictated by: Hardeep Lizarraga MD @ 04/15/2019 07:34:26 Signed by: Hardeep Lizarraga MD @04/15/2019 7:34:26 AM (Electronic Signature) Report Signed by Proxy. RADHA
== END 2019-04-15 08:15 | disposition home or self-care (01) ==
LOC: MW.ED 03:59
DX: R10.9 Unspecified abdominal pain (principal)
CPT/HCPCS: 36415; 74177; 80053; 81001; 84484; 85025; 87086; 99284; J1885; J2405; J7040; 96360; 96374

== ENCOUNTER 2020-09-20 03:44 | Emergency (ER) | payer BC ==
[2020-09-20] MEDS ORDERED: Sodium Chloride 0.9% 2.5 ML Syringe FLUSH PRN (04:00)
[2020-09-20] MEDS ORDERED: Sodium Chloride 0.9% 1,000 ML IV ONE (04:00)
[2020-09-20] MEDS ORDERED: Ondansetron 4 MG/2 ML SDV IVPUSH ONE (04:00)
[2020-09-20] MEDS ORDERED: HYDROmorphone 1 MG/ML Syringe IVPUSH ONE (04:00)
[2020-09-20] MEDS ORDERED: Ketorolac 15 MG/ML SDV IVPUSH ONE (04:00)
[2020-09-20] MEDS ORDERED: Sodium Chloride 0.9% 10 ML Syringe FLUSH PRN (04:00)
--- NOTE | 2020-09-20 04:12 | EDM.PDOC ---
ED HPI GENERAL MEDICAL PROBLEM - General Chief Complaint: Abdominal Pain Stated Complaint: SEVERE ABDOMINAL PAIN Time Seen by Provider: 09/20/20 03:52 - History of Present Illness INITIAL COMMENTS - FREE TEXT/NARRATIVE: HISTORY AND PHYSICAL: History of present illness: This is a 45-year-old female with no significant past medical history for hypertension, diabetes, liver, lung, kidney problems who presents ER today complaining of lower abdominal discomfort that started this morning when she was getting ready to go to work. Patient reports that she has had a history significant for a partial hysterectomy probably 1 year ago. Patient reports over the last couple days she has been having episodes of nausea however this morning she started having severe pain into her lower abdomen. Patient denies any recent fevers, shakes, chills, vomiting, diarrhea, URI symptoms, cough, cold, runny nose, dysuria, frequency, urgency, hematuria, melena, bright red blood per rectum. Patient denies any chest pain or discomfort. Patient denies any discomfort to her lower extremities or swelling. Patient has no known drug allergies. Patient denies any history of hypertension, diabetes, liver, lung, kidney problems. Patient denies any history of coronary disease or strokes in the past. Patient is had a partial hysterectomy Patient denies any tobacco alcohol or drugs. Review of systems: As per history of present illness and below otherwise all systems reviewed and negative. Past medical history: As per history of present illness and as reviewed below otherwise noncontributory. Surgical history: As per history of present illness and as reviewed below otherwise noncontributory. Social history: No reported history of drug or alcohol abuse. Family history: As per history of present illness and as reviewed below otherwise noncontributory. Physical exam: Constitutional: Patient is oriented to person, place, and time. Appears well- developed and well-nourished. No distress. HEENT: Moist mucous membranes Head: Normocephalic and atraumatic Eyes: Right eye exhibits no discharge. Left eye exhibits no discharge. No scleral icterus Neck: Normal range of motion. No tracheal deviation present. Cardiovascular: Normal rate and regular rhythm. Pulmonary: Effort normal, no respiratory distress. Abd: Soft, nondistended, no rebound/guarding, no psoas or obturator signs, no tenderness at Mcberney's point, no Venegas's sign. Pt does not present with an exam that would be consistent with an acute surgical abdomen at this time, tenderness palpation to her lower abdomen in the suprapubic, left lower and rig ht lower quadrants. Musculoskeletal: Normal range of motion Neurologic: Alert and oriented to person, place and time. Skin: Rector, warm and dry. Psychiatric: Normal mood and affect. Behavior is normal. Judgment and thought content normal. Nursing note and vital signs have been reviewed Diagnostics: [] CBC, CMP, lipase, CT of the abdomen pelvis with IV contrast, urinalysis Therapeutics: NSS Toradol 15 mg IV Dilaudid 1 mg IV Zofran 4 mg IV this is a 45-year-old female who presents ER today complaining of lower abdominal discomfort Assessment and plan: 45-year-old female who presents ER today complaining of lower abdominal discomfort that got severe early this morning when she was getting ready to go to work. Patient will have a CBC, CMP, lipase, CT scan of the abdomen pelvis, urinalysis. Patient has been given adequate analgesia and hydration. 5:05 AM: Patient reevaluated after CT scan. Patient reports that her pain is significantly improved and feels much more comfortable. Patient is able ambulate in the ED without any difficulty. Repeat exam: Abd: Soft, nondistended, no rebound/guarding, no psoas or obturator signs, no tenderness at Mcberney's point, no Venegas's sign. Pt does not present with an exam that would be consistent with an acute surgical abdomen at this time, minimal tenderness to palpation lower abdomen. 5:30 AM: Patient is clinically hemodynamically stable. Patient CT scan does not show any cause for her abdominal pain. Although the patient's appendix is 7 mm, it appears to be same size and caliber as prior CT scans. Patient's exam does not appear to be consistent with appendicitis. Patient's pain is diffuse to her lower abdomen with left, right, middle all with the same amount of discomfort. Patient reports that no pain with ambulation or coughing. Repeat examination once again reveals mild tenderness to palpation to her left, right, suprapubic regions. No tenderness at McBurney's point. No rebound or guarding. I have discussed this with the patient and informed her that the pain localizes in the right lower quadrant that she needs to return to the ER to be reevaluated. At this time, I feel that the patient is clinically hemodynamically stable for discharge to home for outpatient evaluation by her family doctor in 1 day. Definitive disposition and diagnosis as appropriate pending reevaluation and review of above. Abdomen Pain Score (Numeric/FACES): 10 - Related Data Allergies Allergy/AdvReac Type Severity Reaction Status Date / Time No Known Allergies Allergy Verified 09/20/20 03:57 Home Meds: Home Meds DULoxetine [Cymbalta] 30 mg PO DAILY 09/20/20 [History] Ibuprofen 600 mg PO Q6HR PRN #30 tablet 09/20/20 [Rx] Levothyroxine [Synthroid] 50 mcg PO ACBREAKFAST 09/20/20 [History] Ondansetron [Zofran ODT] 4 mg PO Q6H PRN #12 tab.dis 09/20/20 [Rx] Past Medical History HEENT History: Reports: None Cardiovascular History: Reports: None Respiratory History: Reports: None Gastrointestinal History: Reports: None Genitourinary History: Reports: None REGIONAL GUIDE History: Reports: , Other (See Below) Other REGIONAL GUIDE History: ovarian cyst Musculoskeletal History: Reports: Fibromyalgia, Other (See Below) Neurological History: Reports: None Psychiatric History: Reports: Depression Endocrine/Metabolic History: Reports: Hypothyroidism 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 Hematologic History: Reports: None Immunologic History: Reports: None Oncologic (Cancer) History: Reports: None Dermatologic History: Reports: None - Infectious Disease History Infectious Disease History: Reports: None - Past Surgical History Head Surgeries/Procedures: Reports: None HEENT Surgical History: Reports: None Cardiovascular Surgical History: Reports: None Respiratory Surgical History: Reports: None GI Surgical History: Reports: None Female Surgical History: Reports: Tubal Ligation, Other (See Below) Other Female Surgeries/Procedures: Partial Hysterectomy Endocrine Surgical History: Reports: None Neurological Surgical History: Reports: None Musculoskeletal Surgical History: Reports: None Social & Family History - Family History Family Medical History: Noncontributory Cardiac: Reports: Other (See Below) Other Cardiac Family History: stated father have cardiac problem - Tobacco Use Tobacco Use Status *Q: Current Every Day Tobacco User Years of Tobacco use: 26 Packs/Tins Daily: 1 - Caffeine Use Caffeine Use: Reports: Coffee - Recreational Drug Use Recreational Drug Use: No ED ROS GENERAL - Review of Systems Review Of Systems: See Below ED EXAM, GENERAL - Physical Exam Exam: See Below Course - Vital Signs Last Recorded V/S: Last Vital Signs Temp 96.9 F 09/20/20 03:54 Pulse 103 H 09/20/20 03:54 Resp 21 H 09/20/20 03:54 BP 135/97 H 09/20/20 03:54 Pulse Ox 95 09/20/20 03:54 - Orders/Labs/Meds Orders: Active Orders 24 hr Category Date Time Status Sodium Chloride 0.9% [Saline Flush] Med 09/20/20 04:00 Active 10 ml FLUSH ASDIRECTED PRN Sodium Chloride 0.9% [Saline Flush] Med 09/20/20 04:00 Active 2.5 ml FLUSH ASDIRECTED PRN Saline Lock Insert [OM.PC] Stat Oth 09/20/20 04:00 Ordered Medication Orders Sodium Chloride (Saline Flush) 10 ml FLUSH ASDIRECTED PRN PRN Reason: Keep Vein Open Last Admin: 09/20/20 04:10 Dose: 10 ml Documented by: ROBIN Sodium Chloride (Saline Flush) 2.5 ml FLUSH ASDIRECTED PRN PRN Reason: Keep Vein Open Last Admin: 09/20/20 04:10 Dose: 2.5 ml Documented by: ROBIN Labs: Laboratory Tests 09/20/20 09/20/20 09/20/20 Range/Units 03:50 03:50 03:54 WBC 4.82 (4.0-11.0) K/uL RBC 4.40 (4.30-5.90) M/uL Hgb 14.3 (12.0-16.0) g/dL Hct 43.3 (36.0-46.0) % MCV 98.4 H (80.0-98.0) fL MCH 32.5 H (27.0-32.0) pg MCHC 33.0 (31.0-37.0) g/dL RDW Std Deviation 45.8 (28.0-62.0) fl RDW Coeff of Desiree 13 (11.0-15.0) % Plt Count 285 (150-400) K/uL MPV 11.10 (7.40-12.00) fL Neut % (Auto) 44.0 L (48.0-80.0) % Lymph % (Auto) 44.6 H (16.0-40.0) % Caswell % (Auto) 8.5 (0.0-15.0) % Eos % (Auto) 2.5 (0.0-7.0) % Baso % (Auto) 0.4 (0.0-1.5) % Neut # (Auto) 2.1 (1.4-5.7) K/uL Lymph # (Auto) 2.2 (0.6-2.4) K/uL Caswell # (Auto) 0.4 (0.0-0.8) K/uL Eos # (Auto) 0.1 (0.0-0.7) K/uL Baso # (Auto) 0.0 (0.0-0.1) K/uL Nucleated RBC % 0.0 /100WBC Nucleated RBCs # 0 K/uL Sodium 138 (136-145) mmol/L Potassium 4.8 (3.5-5.1) mmol/L Chloride 103 (98-107) mmol/L Carbon Dioxide 25.3 (21.0-32.0) mmol/L BUN 14 (7.0-18.0) mg/dL Creatinine 0.8 (0.6-1.0) mg/dL Est Cr Clr Drug Dosing 87.27 mL/min Estimated GFR (MDRD) > 60.0 ml/min Glucose 114 H (74-106) mg/dL Calcium 8.8 (8.5-10.1) mg/dL Total Bilirubin 0.6 (0.2-1.0) mg/dL AST 17 (15-37) IU/L ALT 21 (14-63) IU/L Alkaline Phosphatase 78 (46-116) U/L Total Protein 7.6 (6.4-8.2) g/dL Albumin 4.0 (3.4-5.0) g/dL Globulin 3.6 (2.6-4.0) g/dL Albumin/Globulin Ratio 1.1 (0.9-1.6) Lipase 81 (73-393) U/L Urine Color Urine Appearance Urine pH (5.0-8.0) Ur Specific Lackey (1.001-1.035) Urine Protein (NEGATIVE) mg/dL Urine Glucose (UA) (NEGATIVE) mg/dL Urine Ketones (NEGATIVE) mg/dL Urine Occult Blood (NEGATIVE) Urine Nitrite (NEGATIVE) Urine Bilirubin (NEGATIVE) Urine Urobilinogen (<2.0) EU/dL Ur Leukocyte Esterase (NEGATIVE) Urine HCG, Qual NEGATIVE (NEGATIVE) 09/20/20 Range/Units 03:54 WBC (4.0-11.0) K/uL RBC (4.30-5.90) M/uL Hgb (12.0-16.0) g/dL Hct (36.0-46.0) % MCV (80.0-98.0) fL MCH (27.0-32.0) pg MCHC (31.0-37.0) g/dL RDW Std Deviation (28.0-62.0) fl RDW Coeff of Desiree (11.0-15.0) % Plt Count (150-400) K/uL MPV (7.40-12.00) fL Neut % (Auto) (48.0-80.0) % Lymph % (Auto) (16.0-40.0) % Caswell % (Auto) (0.0-15.0) % Eos % (Auto) (0.0-7.0) % Baso % (Auto) (0.0-1.5) % Neut # (Auto) (1.4-5.7) K/uL Lymph # (Auto) (0.6-2.4) K/uL Caswell # (Auto) (0.0-0.8) K/uL Eos # (Auto) (0.0-0.7) K/uL Baso # (Auto) (0.0-0.1) K/uL Nucleated RBC % /100WBC Nucleated RBCs # K/uL Sodium (136-145) mmol/L Potassium (3.5-5.1) mmol/L Chloride (98-107) mmol/L Carbon Dioxide (21.0-32.0) mmol/L BUN (7.0-18.0) mg/dL Creatinine (0.6-1.0) mg/dL Est Cr Clr Drug Dosing mL/min Estimated GFR (MDRD) ml/min Glucose (74-106) mg/dL Calcium (8.5-10.1) mg/dL Total Bilirubin (0.2-1.0) mg/dL AST (15-37) IU/L ALT (14-63) IU/L Alkaline Phosphatase (46-116) U/L Total Protein (6.4-8.2) g/dL Albumin (3.4-5.0) g/dL Globulin (2.6-4.0) g/dL Albumin/Globulin Ratio (0.9-1.6) Lipase (73-393) U/L Urine Color YELLOW Urine Appearance CLEAR Urine pH 6.0 (5.0-8.0) Ur Specific Lackey 1.010 (1.001-1.035) Urine Protein NEGATIVE (NEGATIVE) mg/dL Urine Glucose (UA) NEGATIVE (NEGATIVE) mg/dL Urine Ketones NEGATIVE (NEGATIVE) mg/dL Urine Occult Blood NEGATIVE (NEGATIVE) Urine Nitrite NEGATIVE (NEGATIVE) Urine Bilirubin NEGATIVE (NEGATIVE) Urine Urobilinogen 0.2 (<2.0) EU/dL Ur Leukocyte Esterase NEGATIVE (NEGATIVE) Urine HCG, Qual (NEGATIVE) Meds: Medications Generic Name Dose Route Start Last Admin Trade Name Freq PRN Reason Stop Dose Admin Sodium Chloride 10 ml 09/20/20 04:00 09/20/20 04:10 Saline Flush FLUSH 10 ml ASDIRECTED PRN Administration Keep Vein Open Sodium Chloride 2.5 ml 09/20/20 04:00 09/20/20 04:10 Saline Flush FLUSH 2.5 ml ASDIRECTED PRN Administration Keep Vein Open Discontinued Medications Generic Name Dose Route Start Last Admin Trade Name Freq PRN Reason Stop Dose Admin Hydromorphone HCl 1 mg 09/20/20 04:00 09/20/20 04:09 Dilaudid IVPUSH 09/20/20 04:01 1 mg ONETIME ONE Administration Sodium Chloride 1,000 mls @ 999 mls/hr 09/20/20 04:00 09/20/20 04:08 Normal Saline IV 09/20/20 05:00 999 mls/hr .Bolus ONE Administration Iopamidol 100 ml 09/20/20 04:47 09/20/20 04:48 Isovue-370 (76%) IVPUSH 09/20/20 04:48 100 ml ONETIME STA Administration Ketorolac Tromethamine 15 mg 09/20/20 04:00 09/20/20 04:11 Toradol IVPUSH 09/20/20 04:01 15 mg ONETIME ONE Administration Ondansetron HCl 4 mg 09/20/20 04:00 09/20/20 04:11 Zofran IVPUSH 09/20/20 04:01 4 mg ONETIME ONE Administration Departure - Departure Time of Disposition: 05:32 Disposition: Home, Self-Care 01 Condition: Good Clinical Impression: Abdominal pain - Discharge Information Instructions: Abdominal Pain, Adult Referrals: PCP,None [Primary Care Provider] - Forms: ED Department Discharge Additional Instructions: You have been seen and evaluated in the ER today for your abdominal pain. Your blood tests, your urinalysis, and your CT scan did not show any cause for the pain that you are experiencing. As we discussed, your appendix is 7 mm which is slightly larger than normal. This could be a sign of extremely early appendicitis however there were no other signs or concerns on the CT scan that would make me highly suspect appendicitis. As we discussed, your exam also does not appear to be consistent with appendicitis at this time however if your pain localized to the right lower abdomen area you need to return to the ER to be reevaluated. Please make sure that you see your family doctor in the next 24 hours for reevaluation of your abdominal pain. Please return to the ER sooner if your abdominal pain worsens or you have any new or concerning symptoms. You will be prescribed ibuprofen and Zofran to assist with your symptoms. The following information is given to patients seen in the emergency department who are being discharged to home. This information is to outline your options for follow-up care. We provide all patients seen in our emergency department with a follow-up referral. The need for follow-up, as well as the timing and circumstances, are variable depending upon the specifics of your emergency department visit. If you don't have a primary care physician on staff, we will provide you with a referral. We always advise you to contact your personal physician following an emergency department visit to inform them of the circumstance of the visit and for follow-up with them and/or the need for any referrals to a consulting specialist. The emergency department will also refer you to a specialist when appropriate. This referral assures that you have the opportunity for follow-up care with a specialist. All of these measure are taken in an effort to provide you with optimal care, which includes your follow-up. Under all circumstances we always encourage you to contact your private physician who remains a resource for coordinating your care. When calling for follow-up care, please make the office aware that this follow-up is from your recent emergency room visit. If for any reason you are refused follow-up, please contact the [facility] Emergency Department at and asked to speak to the emergency department charge nurse. [facility] [address] [place] [address] [facility] [address] [place] [address] Sepsis Event Note (ED) - Evaluation Sepsis Screening Result: Possible Sepsis Risk - Focused Exam Vital Signs: Vital Signs Temp Pulse Resp BP Pulse Ox 09/20/20 03:54 96.9 F 103 H 21 H 135/97 H 95 - My Orders Last 24 Hours: My Active Orders 09/20/20 04:00 Sodium Chloride 0.9% [Saline Flush] 10 ml FLUSH ASDIRECTED PRN Sodium Chloride 0.9% [Saline Flush] 2.5 ml FLUSH ASDIRECTED PRN Saline Lock Insert [OM.PC] Stat - Assessment/Plan Last 24 Hours: My Active Orders 09/20/20 04:00 Sodium Chloride 0.9% [Saline Flush] 10 ml FLUSH ASDIRECTED PRN Sodium Chloride 0.9% [Saline Flush] 2.5 ml FLUSH ASDIRECTED PRN Saline Lock Insert [OM.PC] Stat
[2020-09-20 04:22] LABS: BLOOD UREA NITROGEN,BUN 14 mg/dL (7.0-18.0); CARBON DIOXIDE,CO2 25.3 mmol/L (21.0-32.0); CHLORIDE,CL 103 mmol/L (98-107); GLUCOSE RANDOM 114 mg/dL (74-106); LIPASE 81 U/L (73-393); POTASSIUM,K 4.8 mmol/L (3.5-5.1); SODIUM,NA 138 mmol/L (136-145)
[2020-09-20] MEDS ORDERED: Iopamidol 755 Mg/ML 100 ML Bottle IVPUSH STA (04:47)
--- NOTE | 2020-09-20 05:14 | CT ---
INDICATION: Lower abdominal pain TECHNIQUE: Axial images were obtained from the diaphragm to the pubic symphysis. Reformats were obtained in the coronal and sagittal plane. IV Contrast: 100 cc Isovue 370 Oral Contrast: None COMPARISON: Abdomen and pelvis CT 04/15/2019 FINDINGS: Lower chest: Unremarkable. Liver: Normal in contour with stable subcentimeter hypodensity within the right lobe of the liver. Gallbladder and bile ducts: Unremarkable. No stones or inflammation. No biliary dilatation. Spleen: Unremarkable. Normal in size without mass. Pancreas: Unremarkable. No mass or inflammation. Adrenal glands: Unremarkable. No nodules. Kidneys: Unremarkable. No masses, stones, or hydronephrosis. Vasculature: Unremarkable. GI tract: The stomach is unremarkable. No dilated loops of large or small intestine. Borderline dilatation of the appendix measuring 7 millimeters although without periappendiceal inflammation. Pelvis: Bladder is unremarkable in a patient status post hysterectomy. There is a right ovarian cyst measuring 3.8 centimeters and a left ovarian cyst measuring 2.0 centimeters. Bones: Unremarkable for age. IMPRESSION: 1. No dilated loops of large or small intestine. Borderline diameter appendix measuring 7 millimeters although without periappendiceal inflammation. This is somewhat equivocal, however appendiceal caliber is not significantly changed dating back to the 2019 exam. 2. Status post hysterectomy with bilateral ovarian cysts measuring 3.8 centimeters on the right and 2.0 centimeters on the left. Please note that all CT scans at this facility use dose modulation, iterative reconstruction, and/or weight-based dosing when appropriate to reduce radiation dose to as low as reasonably achievable. Dictated by Ramses Irvin MD @ Sep 20 2020 5:04AM Signed by Dr. Ramses Irvin @ Sep 20 2020 5:12AM
[2020-09-20 05:50] VITALS: BP 117/61; PULSE 67
== END 2020-09-20 05:50 | disposition home or self-care (01) ==
LOC: MW.ED 03:44
DX: R10.31 Right lower quadrant pain (principal); R10.32 Left lower quadrant pain; F32.9 Major depressive disorder, single episode, unspecified; E03.9 Hypothyroidism, unspecified; F17.210 Nicotine dependence, cigarettes, uncomplicated; Z90.710 Acquired absence of both cervix and uterus; Z98.51 Tubal ligation status; Z79.899 Other long term (current) drug therapy
CPT/HCPCS: 36415; 74177; 80053; 81003; 81025; 83690; 85025; 96374; 96375; 99284; J1170; J1885; J2405; J7030; Q9967; 99283

== ENCOUNTER 2021-04-29 07:22 | Emergency (ER) | payer BC ==
[2021-04-29] MEDS ORDERED: Sodium Chloride 0.9% 10 ML Syringe FLUSH PRN (07:30)
[2021-04-29] MEDS ORDERED: Aspirin 81 MG Tab.Chew PO ONE (07:30)
[2021-04-29] MEDS ORDERED: Sodium Chloride 0.9% 2.5 ML Syringe FLUSH PRN (07:30)
--- NOTE | 2021-04-29 07:33 | EDM.PDOC ---
ED HPI GENERAL MEDICAL PROBLEM - General Chief Complaint: Chest Pain Stated Complaint: CHEST PAIN Time Seen by Provider: 04/29/21 07:30 Source of Information: Reports: Patient History Limitations: Reports: No Limitations - History of Present Illness INITIAL COMMENTS - FREE TEXT/NARRATIVE: 45-year-old female past medical history fibromyalgia presents for chest pain. 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 She does note some associated shortness of breath and nausea. She states her pain is in her right anterior chest radiating up her neck and ear. She denies any lower extremity swelling or pain. She notes she had a negative stress test roughly 2 or 3 years ago and does not have any history of coronary artery disease or other cardiac pathology. She did present with similar symptoms a few years ago and followed up getting the stress test. She does use tobacco. chest pain Pain Score (Numeric/FACES): 8 - Related Data Allergies Allergy/AdvReac Type Severity Reaction Status Date / Time No Known Allergies Allergy Verified 04/29/21 07:41 Home Meds: Home Meds DULoxetine [Cymbalta] 30 mg PO DAILY 09/20/20 [History] Ibuprofen 600 mg PO Q6HR PRN #30 tablet 09/20/20 [Rx] Levothyroxine [Synthroid] 50 mcg PO ACBREAKFAST 09/20/20 [History] Ondansetron [Zofran ODT] 4 mg PO Q6H PRN #12 tab.dis 09/20/20 [Rx] Past Medical History HEENT History: Reports: None Cardiovascular History: Reports: None Respiratory History: Reports: None Gastrointestinal History: Reports: None Genitourinary History: Reports: None [employer] History: Reports: , Other (See Below) Other [employer] History: ovarian cyst Musculoskeletal History: Reports: Fibromyalgia, Other (See Below) Neurological History: Reports: None Psychiatric History: Reports: Depression Endocrine/Metabolic History: Reports: Hypothyroidism Insulin Pump Model and Hand Carver: None Hematologic History: Reports: None Immunologic History: Reports: None Oncologic (Cancer) History: Reports: None Dermatologic History: Reports: None - Infectious Disease History Infectious Disease History: Reports: None - Past Surgical History Head Surgeries/Procedures: Reports: None HEENT Surgical History: Reports: None Cardiovascular Surgical History: Reports: None Respiratory Surgical History: Reports: None GI Surgical History: Reports: None Female Surgical History: Reports: Tubal Ligation, Other (See Below) Other Female Surgeries/Procedures: Partial Hysterectomy Endocrine Surgical History: Reports: None Neurological Surgical History: Reports: None Musculoskeletal Surgical History: Reports: None Social & Family History - Family History Family Medical History: No Pertinent Family History Cardiac: Reports: Other (See Below) Other Cardiac Family History: stated father have cardiac problem - Caffeine Use Caffeine Use: Reports: Coffee ED ROS GENERAL - Review of Systems Review Of Systems: Comprehensive ROS is negative, except as noted in HPI. ED EXAM, GENERAL - Physical Exam Exam: See Below Exam Limited By: No Limitations General Appearance: Alert, WD/WN, No Apparent Distress Throat/Mouth: Normal Voice, No Airway Compromise Head: Atraumatic, Normocephalic Neck: Normal Inspection Respiratory/Chest: No Respiratory Distress, Lungs Clear, Normal Breath Sounds, No Accessory Muscle Use Cardiovascular: Normal Peripheral Pulses, Regular Rate, Rhythm, No Edema Extremities: Normal Inspection Neurological: Alert, Normal Cognition, Normal Gait Psychiatric: Normal Affect, Normal Mood Skin Exam: Warm, Dry, Intact, Normal Color #1 Interpretation EKG Date: 04/29/21 Time: 07:24 Rhythm: NSR Rate (Beats/Min): 84 [place]: Normal P-Wave: Present QRS: Normal ST-T: Normal QT: Normal CA/PQ Interval: 141 Comparison: No Change EKG Interpretation Comments: normal EKG without ischemic changes identified Course - Vital Signs Last Recorded V/S: Last Vital Signs Temp 98.5 F 04/29/21 07:38 Pulse 94 04/29/21 07:38 Resp 18 04/29/21 07:38 BP 117/69 04/29/21 08:03 Pulse Ox 97 04/29/21 07:38 - Orders/Labs/Meds Orders: Active Orders 24 hr Category Date Time Status Cardiac Monitoring [RC] . DIRECTED Care 04/29/21 07:30 Active EKG Documentation Completion [RC] STAT Care 04/29/21 07:30 Active Pulse Oximetry [RC] ASDIRECTED Care 04/29/21 07:30 Active Sodium Chloride 0.9% [Saline Flush] Med 04/29/21 07:30 Active 10 ml FLUSH ASDIRECTED PRN Sodium Chloride 0.9% [Saline Flush] Med 04/29/21 07:30 Active 2.5 ml FLUSH ASDIRECTED PRN Saline Lock Insert [OM.PC] Stat Oth 04/29/21 07:30 Ordered Medication Orders Sodium Chloride (Sodium Chloride 0.9% 10 Ml Syringe) 10 ml FLUSH ASDIRECTED PRN PRN Reason: Keep Vein Open Last Admin: 04/29/21 07:54 Dose: 10 ml Documented by: PAPA Sodium Chloride (Sodium Chloride 0.9% 2.5 Ml Syringe) 2.5 ml FLUSH ASDIRECTED PRN PRN Reason: Keep Vein Open Last Admin: 04/29/21 07:54 Dose: 2.5 ml Documented by: PAPA Labs: Laboratory Tests 04/29/21 04/29/21 04/29/21 Range/Units 07:36 07:36 07:53 WBC 5.43 (4.0-11.0) K/uL RBC 4.09 L (4.30-5.90) M/uL Hgb 13.7 (12.0-16.0) g/dL Hct 40.3 (36.0-46.0) % MCV 98.5 H (80.0-98.0) fL MCH 33.5 H (27.0-32.0) pg MCHC 34.0 (31.0-37.0) g/dL RDW Std Deviation 46.5 (28.0-62.0) fl RDW Coeff of Desiree 13 (11.0-15.0) % Plt Count 239 (150-400) K/uL MPV 11.20 (7.40-12.00) fL Neut % (Auto) 51.5 (48.0-80.0) % Lymph % (Auto) 40.7 H (16.0-40.0) % [place] % (Auto) 6.3 (0.0-15.0) % Eos % (Auto) 1.1 (0.0-7.0) % Baso % (Auto) 0.4 (0.0-1.5) % Neut # (Auto) 2.8 (1.4-5.7) K/uL Lymph # (Auto) 2.2 (0.6-2.4) K/uL [place] # (Auto) 0.3 (0.0-0.8) K/uL Eos # (Auto) 0.1 (0.0-0.7) K/uL Baso # (Auto) 0.0 (0.0-0.1) K/uL Nucleated RBC % 0.0 /100WBC Nucleated RBCs # 0 K/uL D-Dimer, Quantitative < 0.19 (0.0-0.50) mg/L FEU Sodium 138 (136-145) mmol/L Potassium 4.1 (3.5-5.1) mmol/L Chloride 103 (98-107) mmol/L Carbon Dioxide 25.7 (21.0-32.0) mmol/L BUN 12 (7.0-18.0) mg/dL Creatinine 0.8 (0.6-1.0) mg/dL Est Cr Clr Drug Dosing 84.01 mL/min Estimated GFR (MDRD) > 60.0 ml/min Glucose 132 H (74-106) mg/dL Calcium 8.5 (8.5-10.1) mg/dL Total Bilirubin 0.4 (0.2-1.0) mg/dL AST 21 (15-37) IU/L ALT 21 (14-63) IU/L Alkaline Phosphatase 87 (46-116) U/L Troponin I < 0.050 (0.000-0.056) ng/mL Total Protein 7.7 (6.4-8.2) g/dL Albumin 3.9 (3.4-5.0) g/dL Globulin 3.8 (2.6-4.0) g/dL Albumin/Globulin Ratio 1.0 (0.9-1.6) TSH 3rd Generation 0.46 (0.36-3.74) uIU/mL 04/29/21 Range/Units 10:47 WBC (4.0-11.0) K/uL RBC (4.30-5.90) M/uL Hgb (12.0-16.0) g/dL Hct (36.0-46.0) % MCV (80.0-98.0) fL MCH (27.0-32.0) pg MCHC (31.0-37.0) g/dL RDW Std Deviation (28.0-62.0) fl RDW Coeff of Desiree (11.0-15.0) % Plt Count (150-400) K/uL MPV (7.40-12.00) fL Neut % (Auto) (48.0-80.0) % Lymph % (Auto) (16.0-40.0) % [place] % (Auto) (0.0-15.0) % Eos % (Auto) (0.0-7.0) % Baso % (Auto) (0.0-1.5) % Neut # (Auto) (1.4-5.7) K/uL Lymph # (Auto) (0.6-2.4) K/uL [place] # (Auto) (0.0-0.8) K/uL Eos # (Auto) (0.0-0.7) K/uL Baso # (Auto) (0.0-0.1) K/uL Nucleated RBC % /100WBC Nucleated RBCs # K/uL D-Dimer, Quantitative (0.0-0.50) mg/L FEU Sodium (136-145) mmol/L Potassium (3.5-5.1) mmol/L Chloride (98-107) mmol/L Carbon Dioxide (21.0-32.0) mmol/L BUN (7.0-18.0) mg/dL Creatinine (0.6-1.0) mg/dL Est Cr Clr Drug Dosing mL/min Estimated GFR (MDRD) ml/min Glucose (74-106) mg/dL Calcium (8.5-10.1) mg/dL Total Bilirubin (0.2-1.0) mg/dL AST (15-37) IU/L ALT (14-63) IU/L Alkaline Phosphatase (46-116) U/L Troponin I < 0.050 (0.000-0.056) ng/mL Total Protein (6.4-8.2) g/dL Albumin (3.4-5.0) g/dL Globulin (2.6-4.0) g/dL Albumin/Globulin Ratio (0.9-1.6) TSH 3rd Generation (0.36-3.74) uIU/mL Meds: Medications Generic Name Dose Route Start Last Admin Trade Name Freq PRN Reason Stop Dose Admin Sodium Chloride 10 ml 04/29/21 07:30 04/29/21 07:54 Sodium Chloride 0.9% 10 Ml Syringe FLUSH 10 ml ASDIRECTED PRN Administration Keep Vein Open Sodium Chloride 2.5 ml 04/29/21 07:30 04/29/21 07:54 Sodium Chloride 0.9% 2.5 Ml Syringe FLUSH 2.5 ml ASDIRECTED PRN Administration Keep Vein Open Discontinued Medications Generic Name Dose Route Start Last Admin Trade Name Prestonq PRN Reason Stop Dose Admin Aspirin 324 mg 04/29/21 07:30 04/29/21 07:54 Aspirin 81 Mg Tab.Chew PO 04/29/21 07:31 324 mg ONETIME ONE Administration Nitroglycerin 0.4 mg 04/29/21 07:30 04/29/21 08:03 Nitroglycerin 0.4 Mg Tab.Sl SL 0.4 mg Q5M PRN Administration Chest Pain - Re-Assessments/Exams Free Text/Narrative Re-Assessment/Exam: 04/29/21 07:35 We will get labs including troponin and D-dimer. EKG is nonischemic. Will give aspirin and nitroglycerin and reassess patient's pain. 04/29/21 08:24 Initial set of lab work is unremarkable. Will get a 3-hour repeat troponin at 10:30 AM and reassess for disposition. HEART = 0 04/29/21 11:33 Repeat troponin is negative. Will discharge patient with PMD follow-up. Departure - Departure Time of Disposition: 11:33 Disposition: Home, Self-Care 01 Condition: Good Clinical Impression: Chest pain Qualifiers: Chest pain type: unspecified Qualified Code(s): R07.9 - Chest pain, unspecified - Discharge Information Instructions: Nonspecific Chest Pain, Adult Referrals: PCP,None [Primary Care Provider] - Forms: ED Department Discharge Additional Instructions: Your cardiac enzymes are negative. You need to follow-up with your primary care physician regarding your recurrent episodes of chest pain. Back, if you have difficulty breathing, or any new or concerning symptoms develop then you are encouraged to return to the emergency department for reassessment. The following information is given to patients seen in the emergency department who are being discharged to home. This information is to outline your options for follow-up care. We provide all patients seen in our emergency department w ith a follow-up referral. The need for follow-up, as well as the timing and circumstances, are variable depending upon the specifics of your emergency department visit. If you don't have a primary care physician on staff, we will provide you with a referral. We always advise you to contact your personal physician following an emergency department visit to inform them of the circumstance of the visit and for follow-up with them and/or the need for any referrals to a consulting specialist. The emergency department will also refer you to a specialist when appropriate. This referral assures that you have the opportunity for follow-up care with a specialist. All of these measure are taken in an effort to provide you with optimal care, which includes your follow-up. Under all circumstances we always encourage you to contact your private physician who remains a resource for coordinating your care. When calling for follow-up care, please make the office aware that this follow-up is from your recent emergency room visit. If for any reason you are refused follow-up, please contact the [facility] Emergency Department at and asked to speak to the emergency department charge nurse. Please follow up with your primary care physician. If you do not have a primary care physician, see below: [facility] [address] [place] [id number] [facility] [address] [place] [address] [id number] [facility] [address] [place] [id number] Sepsis Event Note (ED) - Focused Exam Vital Signs: Vital Signs Temp Pulse Resp BP BP Pulse Ox 04/29/21 08:03 117/69 04/29/21 07:58 113/65 04/29/21 07:52 121/73 04/29/21 07:38 98.5 F 94 18 138/64 97 - My Orders Last 24 Hours: My Active Orders 04/29/21 07:30 Cardiac Monitoring [RC] . DIRECTED EKG Documentation Completion [RC] STAT Pulse Oximetry [RC] ASDIRECTED Sodium Chloride 0.9% [Saline Flush] 10 ml FLUSH ASDIRECTED PRN Sodium Chloride 0.9% [Saline Flush] 2.5 ml FLUSH ASDIRECTED PRN Saline Lock Insert [OM.PC] Stat - Assessment/Plan Last 24 Hours: My Active Orders 04/29/21 07:30 Cardiac Monitoring [RC] . DIRECTED EKG Documentation Completion [RC] STAT Pulse Oximetry [RC] ASDIRECTED Sodium Chloride 0.9% [Saline Flush] 10 ml FLUSH ASDIRECTED PRN Sodium Chloride 0.9% [Saline Flush] 2.5 ml FLUSH ASDIRECTED PRN Saline Lock Insert [OM.PC] Stat
[2021-04-29] MEDS: Nitroglycerin 0.4 MG Tab.SL SL PRN ×3 (07:52→08:03)
--- NOTE | 2021-04-29 07:58 | CR ---
INDICATION: Chest pain. TECHNIQUE: Chest 1 view. COMPARISON: 11/21/2018. FINDINGS: Cardiovascular and mediastinum: Heart size and vasculature are normal in caliber and appearance. Mediastinum is within normal limits. Lungs and pleural space: Lungs are clear. No sign of infiltrate or mass. No sign of pleural effusion. No pneumothorax. Bones and soft tissues: No significant findings. IMPRESSION: Lungs are clear. Dictated by Hardeep Lizarraga MD @ 04/29/2021 7:57:[address] Hardeep Lizarraga @ Apr 29 2021 7:57AM
[2021-04-29 08:05] LABS: BLOOD UREA NITROGEN,BUN 12 mg/dL (7.0-18.0); CARBON DIOXIDE,CO2 25.7 mmol/L (21.0-32.0); CHLORIDE,CL 103 mmol/L (98-107); GLUCOSE RANDOM 132 mg/dL (74-106); POTASSIUM,K 4.1 mmol/L (3.5-5.1); SODIUM,NA 138 mmol/L (136-145)
[2021-04-29 11:35] VITALS: BP 118/76; PULSE 69
== END 2021-04-29 11:39 | disposition home or self-care (01) ==
LOC: MW.ED 07:22
DX: R07.9 Chest pain, unspecified (principal); E03.9 Hypothyroidism, unspecified; Z79.899 Other long term (current) drug therapy
CPT/HCPCS: 36415; 71045; 80053; 84443; 84484; 85025; 85379; 93005; 99285; A9270; 93010; 99283

== ENCOUNTER 2024-07-10 06:03 | Emergency (ER) | payer BC ==
[2024-07-10] MEDS ORDERED: Sodium Chloride 0.9% 10 ML Syringe FLUSH PRN (07:41)
[2024-07-10] MEDS ORDERED: Sodium Chloride 0.9% 2.5 ML Syringe FLUSH PRN (07:41)
[2024-07-10 08:07] LABS: BASOPHILS ABSOLUTE AUTO 0.03 K/uL (0.00-0.20); BASOPHILS PERCENT AUTO 0.5 % (0.0-1.0); EOSINOPHILS ABSOLUTE AUTO 0.11 K/uL (0.00-0.45); HEMATOCRIT 39.2 % (37.0-47.0); HEMOGLOBIN 13.3 g/dL (12.0-16.0); IMMATURE GRAN ABSOLUTE AUTO 0.01 K/uL (0.00-0.05); IMMATURE GRAN PERCENT AUTO 0.2 % (0.0-0.4); LYMPHOCYTES PERCENT AUTO 34.4 % (24.0-44.0); MEAN CORPUSCULAR HEMOGLOBIN 31.9 pg (28.0-32.0); MEAN CORPUSCULAR HGB CONC 33.9 g/dL (32.0-36.0); MEAN PLATELET VOLUME 10.6 fL (9.4-12.3); MONOCYTES ABSOLUTE AUTO 0.39 K/uL (0.00-0.80); MONOCYTES PERCENT AUTO 7.1 % (0.0-8.0); NEUTROPHILS ABSOLUTE AUTO 3.09 K/uL (1.80-7.70); NEUTROPHILS PERCENT AUTO 55.8 % (41.0-71.0); PLATELET COUNT,PLT 282 K/uL (150-400); RED BLOOD CELL COUNT 4.17 M/uL (4.10-5.30); WHITE BLOOD CELL COUNT,WBC 5.53 K/uL (3.9-11.3)
[2024-07-10 08:30] LABS: A/G RATIO 0.9 (0.9-1.6); ALANINE AMINOTRANSFERASE,ALT 17 IU/L (14-63); ALBUMIN 3.9 g/dL (3.4-5.0); ALKALINE PHOSPHATASE 121 U/L (46-116); ASPARTATE AMNIOTRANSFERASE,AST 12 IU/L (15-37); BILIRUBIN TOTAL 0.4 mg/dL (0.2-1.0); BLOOD UREA NITROGEN,BUN 14 mg/dL (7.0-18.0); CALCIUM 9.4 mg/dL (8.5-10.1); CARBON DIOXIDE,CO2 30.5 mmol/L (21.0-32.0); CHLORIDE,CL 101 mmol/L (98-107); CREATININE 0.7 mg/dL (0.6-1.0); EST CRCL DRUG DOSING (CG) 93.01 mL/min; GLUCOSE RANDOM 95 mg/dL (74-106); LIPASE 26 U/L (16-77); POTASSIUM,K 4.5 mmol/L (3.5-5.1); PROTEIN TOTAL,TP 8.2 g/dL (6.4-8.2); SODIUM,NA 139 mmol/L (136-145)
[2024-07-10 08:31] LABS: ESTIMATED GFR 107 mL/min (>60)
[2024-07-10] MEDS: Iopamidol 755 MG/ML 500 ML Multipack Bottle IVPUSH ONE (08:50)
[2024-07-10] MEDS ORDERED: Diatrizoate Meglumine/Diatrizoate Sodium 37% 120 ML Bottle PO ONE (09:43)
[2024-07-10] MEDS ORDERED: Naloxone 0.4 MG/ML SDV IVPUSH PRN (09:45)
[2024-07-10] MEDS: Sodium Chloride 0.9% 1,000 ML IV ONE (10:02)
[2024-07-10] MEDS: Morphine 4 MG/ML Syringe IVPUSH ONE (10:02)
[2024-07-10] MEDS: Diatrizoate Meglumine/Diatrizoate Sodium 37% 30 ML Bottle PO STA (12:40)
[2024-07-10] MEDS: Alum Hydro/Mag Hydro/Simeth XS 15 ML, Lidocaine 2% 5 ML PO ONE (13:44)
[2024-07-10] MEDS: Pantoprazole 40 MG in Sodium Chloride 0.9% 10 ML IVPUSH ONE (13:45)
[2024-07-10 14:44] VITALS: BP 148/88; PULSE 76
== END 2024-07-10 17:08 | disposition home or self-care (01) ==
LOC: MW.ED 06:03
DX: R10.13 Epigastric pain (principal); Z75.3 Unavailability and inaccessibility of health-care facilities; Z79.899 Other long term (current) drug therapy; Z90.710 Acquired absence of both cervix and uterus
CPT/HCPCS: 36415; 74160; 74177; 80053; 83605; 83690; 84484; 85025; 93005; 96361; 96374; 96375; 99284; A9270; J2270; J2470; J3490; J7030; Q9963; Q9967